=== PATIENT | female | born 1955 | race Caucasian/White ===

== ENCOUNTER 2017-06-16 19:34 | Inpatient (IN) | payer BC ==
[~2017-06-16] VITALS: Ht 167.6 cm; Wt 143.1 kg
[2017-06-16 20:59] LABS: HEMATOCRIT 31.2 % (36.0-46.0); HEMOGLOBIN 9.1 G/DL (11.9-15.5); MCH 20.7 PG (29.0-34.0); MCHC 29.2 G/DL (30.0-36.0); MCV 70.9 FL (83-99); NRBC (%) 0.2 /100 WBC (0-0); PLATELET COUNT 541 K/uL (156-360); RBC DIS.WIDTH-CV 18.6 % (11.8-14.6); RBC DIS.WIDTH-SD 46.9 % (39-53); WHITE BLOOD COUNT 11.7 K/uL (4.1-10.2)
[2017-06-16 21:01] LABS: CHLORIDE 101 mEq/L (99-109); POTASSIUM 4.1 mEq/L (3.7-5.4); SODIUM 140 mEq/L (136-147)
[2017-06-16 21:03] LABS: GLUCOSE 131 mg/dL (70-99); TOTAL PROTEIN 8.6 g/dL (6.4-8.3)
[2017-06-16 21:05] LABS: TOTAL BILIRUBIN 0.6 mg/dL (0.0-1.0)
[2017-06-16 21:07] LABS: ALKALINE PHOSPHATASE 101 IU/L (3-129); CREATININE 1.3 mg/dL (0.6-1.3); GFR ESTIMATE (CALCULATED) 44 mL/min/
[2017-06-16 21:08] LABS: UREA NITROGEN (BUN) 26 mg/dL (9-23)
[2017-06-16 21:09] LABS: AST (GOT) 27 IU/L (2-34)
[2017-06-16 21:10] LABS: ALT (GPT) 10 IU/L (3-49)
[2017-06-16] MEDS ORDERED: FARXIGA10 MG PO (22:47)
[2017-06-16] MEDS ORDERED: LOPRESSOR100 M1 PO (22:47)
[2017-06-16] MEDS ORDERED: MICRONASE5 MG PO (22:48)
[2017-06-16] MEDS ORDERED: VOLTAREN50 MG PO (22:50)
[2017-06-16] MEDS ORDERED: GLUCOPHAGE500 MG PO (22:51)
[2017-06-16] MEDS ORDERED: FLEXERIL10 MG PO (22:51)
[2017-06-16] MEDS ORDERED: MAGNESIUM250 MG PO (22:52)
[2017-06-16] MEDS ORDERED: TRULICITY0.75 MG/0. SC (22:52)
[2017-06-16] MEDS ORDERED: VITAMIN D31000 UNI2 PO (22:52)
[2017-06-16] MEDS ORDERED: TYLENOL EXTRA500 MG PO (22:53)
[2017-06-16] MEDS ORDERED: LO-DOSE ASPIRIN81 M1 PO (22:53)
[2017-06-16] MEDS ORDERED: LIPITOR80 MG PO (22:53)
[2017-06-16] MEDS ORDERED: VISINE ADVANCED15 ML BOTH EYES (22:53)
[2017-06-16] MEDS ORDERED: COMBIVENT RESPIM4 GM IH (22:54)
[2017-06-17 03:28] VITALS: BP 138/67
[2017-06-17 09:14] VITALS: BP 136/79
[2017-06-17 12:02] VITALS: BP 98/49
[2017-06-17 15:15] VITALS: BP 126/67
[2017-06-17 18:50] VITALS: BP 117/55
[2017-06-18 00:10] VITALS: BP 103/54
[2017-06-18 04:00] VITALS: BP 122/65
[2017-06-18 08:32] VITALS: BP 131/69
[2017-06-18 10:09] LABS: HEMATOCRIT 28.1 % (36.0-46.0); HEMOGLOBIN 7.7 G/DL (11.9-15.5); MCH 20.2 PG (29.0-34.0); MCHC 27.4 G/DL (30.0-36.0); MCV 73.6 FL (83-99); PLATELET COUNT 457 K/uL (156-360); RBC DIS.WIDTH-CV 18.6 % (11.8-14.6); RBC DIS.WIDTH-SD 49.6 % (39-53); RED BLOOD COUNT 3.82 M/uL (3.80-5.20); WHITE BLOOD COUNT 10.3 K/uL (4.1-10.2)
[2017-06-18 10:23] LABS: CHLORIDE 109 MEQ/L (99-109); CREATININE 1.4 MG/DL (0.6-1.3); GFR ESTIMATE (CALCULATED) 40 mL/min/; GLUCOSE 165 mg/dL (70-99); SODIUM 141 MEQ/L (136-147); UREA NITROGEN (BUN) 18 mg/dL (9-23)
[2017-06-18 10:24] LABS: POTASSIUM 5.4 MEQ/L (3.7-5.4)
[2017-06-18 11:55] VITALS: BP 133/63
[2017-06-18] MEDS ORDERED: HYDROCODON-ACE1 EAC7 PO (14:14)
[2017-06-18] MEDS ORDERED: AUGMENTIN875 MG PO (14:20)
[2017-06-18 15:15] VITALS: BP 130/61
[2017-06-18 23:31] VITALS: BP 136/70
[2017-06-19 07:17] VITALS: BP 141/63
[2017-06-19] MEDS ORDERED: AUGMENTIN875 MG PO (12:28)
[2017-06-19] MEDS ORDERED: HYDROCODON-ACE1 EAC7 PO (12:29)
== END 2017-06-19 14:30 | disposition home or self-care (01) | DRG 256 ==
LOC: EME 19:34 → EDOF 06-17 01:48 → ENRESERV 06-17 01:49 → 2EAST 06-17 03:22
PROVIDERS: Hospitalist; Nurse Practitioner Family
PROC: 0Y6R0Z0 Detachment at Right 2nd Toe, Complete, Open Approach (ICD-10-PCS; principal; 2017-06-17)
PROC: 0QBN0ZZ Excision of Right Metatarsal, Open Approach (ICD-10-PCS; principal; 2017-06-17)
DX: E11.52 Type 2 diabetes mellitus with diabetic peripheral angiopathy with gangrene (principal); I96 Gangrene, not elsewhere classified; E11.628 Type 2 diabetes mellitus with other skin complications; L03.031 Cellulitis of right toe; B95.61 Methicillin susceptible Staphylococcus aureus infection as the cause of diseases classified elsewhere; E11.621 Type 2 diabetes mellitus with foot ulcer; L97.519 Non-pressure chronic ulcer of other part of right foot with unspecified severity; E11.65 Type 2 diabetes mellitus with hyperglycemia; N28.9 Disorder of kidney and ureter, unspecified; J44.9 Chronic obstructive pulmonary disease, unspecified; I10 Essential (primary) hypertension; D64.9 Anemia, unspecified; E11.40 Type 2 diabetes mellitus with diabetic neuropathy, unspecified; F32.9 Major depressive disorder, single episode, unspecified; E66.01 Morbid (severe) obesity due to excess calories; Z79.82 Long term (current) use of aspirin; Z88.2 Allergy status to sulfonamides; Z87.891 Personal history of nicotine dependence; Z68.43 Body mass index [BMI] 50.0-59.9, adult; Z79.84 Long term (current) use of oral hypoglycemic drugs; Z85.3 Personal history of malignant neoplasm of breast; Z98.84 Bariatric surgery status
CPT/HCPCS: 73630; 80048; 80053; 80202; 82948; 83605; 85027; 87040; 87070; 87075; 87077; 87147; 87186; 87205; 88305; 88311; 99202; 99281; 99285; J1644; J1815; J2250; J2405; J2543; J3010; J3370; J7030; J7050; S0028